=== PATIENT | female | born 1965 | race Caucasian/White ===

== ENCOUNTER 2021-04-22 10:07 | Emergency (ER) | payer MEDICAID ==
[~2021-04-22] VITALS: Ht 175.3 cm; Wt 59.1 kg
[~2021-04-22 10:07] MED LIST: CLON-527 PO
[2021-04-22 10:34] VITALS: BP 108/65
[2021-04-22] MEDS ORDERED: AMOX500C2 PO (10:43)
== END 2021-04-22 12:10 | disposition home or self-care (01) ==
LOC: ER 10:07
DX: J01.91 Acute recurrent sinusitis, unspecified (principal); F41.9 Anxiety disorder, unspecified; F32.9 Major depressive disorder, single episode, unspecified; Z79.2 Long term (current) use of antibiotics; Z79.899 Other long term (current) drug therapy
CPT/HCPCS: 99283

== ENCOUNTER 2021-06-08 08:33 | Emergency (ER) | payer MEDICAID ==
[~2021-06-08] VITALS: Ht 175.3 cm; Wt 60.7 kg
[2021-06-08 08:39] VITALS: BP 155/118
[2021-06-08] MEDS ORDERED: FLUT16SP2 BOTHNARES ×3 (10:12→10:28)
[2021-06-08] MEDS ORDERED: CLIN300C54 PO ×3 (10:12→10:28)
[2021-06-08] MEDS ORDERED: IBUP-1984 PO ×3 (10:12→10:28)
== END 2021-06-08 10:31 | disposition home or self-care (01) ==
LOC: ER 08:34
DX: J32.8 Other chronic sinusitis (principal); R22.0 Localized swelling, mass and lump, head; B96.89 Other specified bacterial agents as the cause of diseases classified elsewhere; F17.210 Nicotine dependence, cigarettes, uncomplicated; Z56.0 Unemployment, unspecified; Z79.2 Long term (current) use of antibiotics; Z79.899 Other long term (current) drug therapy
CPT/HCPCS: 99283

== ENCOUNTER 2022-04-21 08:05 | Emergency (ER) | payer MEDICAID ==
[~2022-04-21] VITALS: Ht 175.3 cm; Wt 61.8 kg
[~2022-04-21 08:05] MED LIST changes: +FLUT16SP2 BOTHNARES
[2022-04-21 08:10] VITALS: BP 119/87
[2022-04-21] MEDS ORDERED: NAPR-56 PO (08:56)
[2022-04-21] MEDS ORDERED: FLUC150T22 PO (08:56)
[2022-04-21] MEDS ORDERED: LEVO-65 PO (08:56)
== END 2022-04-21 09:05 | disposition home or self-care (01) ==
LOC: ER 08:05
DX: H66.011 Acute suppurative otitis media with spontaneous rupture of ear drum, right ear (principal); H92.01 Otalgia, right ear; F17.200 Nicotine dependence, unspecified, uncomplicated; Z56.0 Unemployment, unspecified; Z79.2 Long term (current) use of antibiotics; Z79.899 Other long term (current) drug therapy
CPT/HCPCS: 99283